=== PATIENT | male | born 1955 | race Caucasian/White ===

== ENCOUNTER 2021-10-29 19:44 | Emergency (ER) | payer BC ==
[2021-10-29] MEDS ORDERED: Ibuprofen 800 MG Tab PO ONE (20:21)
[2021-10-29] MEDS ORDERED: Aluminum Hydroxide/Magnesium Hydroxide/Simethicone Susp 30 ML Cup PO ONE (20:21)
== END 2021-10-29 21:31 | disposition home or self-care (01) ==
LOC: JD.ED 19:44
DX: K40.90 Unilateral inguinal hernia, without obstruction or gangrene, not specified as recurrent (principal)
CPT/HCPCS: 36415; 80053; 83605; 85025; 99284; A9270; 99283

== ENCOUNTER 2021-11-19 09:17 | Day surgery (SDC) | payer OTHER, BC ==
[~2021-11-19 09:17] MED LIST: Lactated Ringers 1,000 ML IV SCH; Lidocaine 1%/Sod Bicarbonate in NS 8.4% 1 ML Syringe IDERM PRN; Sodium Chloride 0.9% 10 ML Syringe FLUSH PRN; Sodium Chloride 0.9% 10 ML Syringe FLUSH SCH
[2021-11-19] MEDS ORDERED: Bupivacaine 0.5% 30 ML SDV ONE (10:11)
[2021-11-19] MEDS ORDERED: Lidocaine 0.5% 50 ML SDV ONE (10:15)
[2021-11-19] MEDS ORDERED: Propofol 200 MG/20 ML SDV ONE ×2 (10:16→11:51)
[2021-11-19] MEDS ORDERED: Lidocaine 1% 5 ML VIAL ONE (10:16)
[2021-11-19] MEDS ORDERED: Midazolam 1 MG/ML 2 ML SDV ONE ×2 (10:16→10:58)
[2021-11-19] MEDS ORDERED: ceFAZolin 1 GM Vial ONE (10:45)
[2021-11-19] MEDS ORDERED: fentaNYL 100 MCG/2 ML SDV ONE (11:00)
[2021-11-19] MEDS: Bupivacaine 0.5%/EPINEPHrine 1:200,000 50 ML MDV ONE ×2 (11:02→11:41)
[2021-11-19] MEDS ORDERED: Ondansetron 4 MG/2 ML SDV ONE (11:11)
== END 2021-11-19 13:20 | disposition home or self-care (01) ==
LOC: JD.SDS 09:17
PROVIDERS: ATTEND Surgery
DX: K40.90 Unilateral inguinal hernia, without obstruction or gangrene, not specified as recurrent (principal); K21.9 Gastro-esophageal reflux disease without esophagitis; I10 Essential (primary) hypertension; G47.00 Insomnia, unspecified; F79 Unspecified intellectual disabilities; Z79.899 Other long term (current) drug therapy
CPT/HCPCS: 49505; C1781; J0690; J2250; J2405; J2704; J3010; J3490; J7120; 00830